=== PATIENT | male | born 1970 ===

== ENCOUNTER 2018-04-08 16:21 | Observation (INO) | payer SELFPAY ==
[2018-04-08 16:21] VITALS: BMI 38.7
--- NOTE | 2018-04-08 17:34 | ED PDOC ---
HPI: General Adult Time Seen by Provider: 04/08/18 16:59 Chief Complaint (Nursing): Dizziness/Lightheaded Chief Complaint (Provider): Bradycardia, Dizziness History Per: Patient History/Exam Limitations: no limitations Onset/Duration Of Symptoms: Other (x3 weeks) Current Symptoms Are (Timing): Still Present Additional Complaint(s): 47 y/o male, with a past medical history of HTN and anxiety, sent from clinic for evaluation of bradycardia. Patient presented to clinic earlier today complaining of dizziness ongoing for 2 weeks. He describes dizziness as a room spinning sensation, but also states he feels lightheaded. He denies any history of similar symptoms. He also denies any vomiting, melena, fever, or change in vision or speech. He notes mild headache and states he has not taken his blood pressure medication, Amlodipine, in several days due to dizziness. PMD: [facility] Past Medical History Reviewed: Historical Data, Nursing Documentation, Vital Signs Vital Signs: Last Vital Signs Temp 98.3 F 04/08/18 16:51 Pulse 56 L 04/08/18 16:51 Resp 16 04/08/18 16:51 BP 158/76 H 04/08/18 16:51 Pulse Ox 100 04/08/18 17:43 - Medical History PMH: Anxiety, HTN - Surgical History Surgical History: Appendectomy - Family History Family History: States: Unknown Family Hx - Home Medications Home Medications: Ambulatory Orders Medication Instructions Recorded Naproxen [Naprosyn] 500 mg PO BID #30 tablet 04/24/17 - Allergies Allergies/Adverse Reactions: Allergies Allergy/AdvReac Type Severity Reaction Status Date / Time No Known Allergies Allergy Verified 04/18/16 16:18 Review of Systems ROS Statement: Except As Marked, All Systems Reviewed And Found Negative Constitutional: Positive for: Weakness. Negative for: Fever Eyes: Negative for: Vision Change Gastrointestinal: Negative for: Vomiting, Melena Neurological: Positive for: Dizziness. Negative for: Change in Speech Physical Exam - Reviewed Nursing Documentation Reviewed: Yes Vital Signs Reviewed: Yes - Physical Exam Appears: Positive for: Non-toxic, No Acute Distress Head Exam: Positive for: ATRAUMATIC, NORMAL INSPECTION, NORMOCEPHALIC Skin: Positive for: Normal Color, Warm, Dry. Negative for: Pallor, Rash Eye Exam: Positive for: EOMI, Normal appearance, PERRL Neck: Positive for: Normal, Painless ROM, Supple Cardiovascular/Chest: Positive for: Bradycardia Respiratory: Positive for: Normal Breath Sounds. Negative for: Respiratory Distress Gastrointestinal/Abdominal: Positive for: Normal Exam, Soft. Negative for: Tenderness Back: Positive for: Normal Inspection. Negative for: L CVA Tenderness, R CVA Tenderness, Vertebral Tenderness Extremity: Positive for: Normal ROM. Negative for: Deformity, Swelling Neurologic/Psych: Positive for: Alert, Oriented (x3), Cerebellar Tests ( coordination intact). 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 Provider Scribe Attestation: All medical record entries made by the Scribe were at my direction and personally dictated by me. I have reviewed the chart and agree that the record accurately reflects my personal performance of the history, physical exam, medical decision making, and the department course for this patient. I have also personally directed, reviewed, and agree with the discharge instructions and disposition. Disposition - Disposition Forms: [employer] (Panamanian)
[2018-04-08 17:38] LABS: BASO # 0.1 K/uL (0.0-0.2); BASO % 1.1 % (0.0-2.0); EOS # 0.2 K/uL (0.0-0.7); EOS % 2.6 % (0.0-4.0); HEMOGLOBIN 15.5 g/dL (12.0-18.0); LYMPH # 3.4 K/uL (1.0-4.3); MEAN CELL VOLUME 87.4 fl (80.0-94.0); MEAN CORPUSCULAR HEMOGLOBIN 29.3 pg (27.0-31.0); MEAN CORPUSCULAR HGB CONC 33.5 g/dL (33.0-37.0); MEAN PLATELET VOLUME 8.9 fl (7.2-11.7); MONO # 0.5 K/uL (0.0-0.8); MONO % 6.6 % (0.0-10.0); NEUT # 3.9 K/uL (1.8-7.0); NEUT % 47.7 % (50.0-75.0); NRBC % 0.1 % (0.0-0.0); RBC 5.27 Mil/uL (4.40-5.90); RED CELL DISTRIBUTION WIDTH 13.4 % (11.5-14.5); WHITE BLOOD COUNT 8.2 K/uL (4.8-10.8)
[2018-04-08 17:40] LABS: PROTHROMBIN TIME 11.2 Seconds (9.8-13.1)
[2018-04-08 17:43] LABS: PARTIAL THROMBOPLASTIN TIME 33.4 Seconds (25.6-37.1)
[2018-04-08 17:59] LABS: ALB/GLOB RATIO 1.5 (1.0-2.1); ALBUMIN 4.8 g/dL (3.5-5.0); ALT/SGPT 47 U/L (21-72); AST/SGOT 36 U/L (17-59); B-TYPE NATRIURETIC PEPTIDE 50.7 pg/ml (0-450); BLOOD UREA NITROGEN 11 mg/dl (9-20); CALCIUM 9.4 mg/dL (8.4-10.2); GFR AFRICAN-AMERICAN > 60; GFR NON-AFRICAN AMERICAN > 60
--- NOTE | 2018-04-08 18:05 | CT ---
Date of service: 04/08/2018 PROCEDURE: CT HEAD WITHOUT CONTRAST. HISTORY: dizzy w bradycardia, HTN COMPARISON: Comparison is made with 04/18/2016 TECHNIQUE: Axial computed tomography images were obtained through the head/brain without intravenous contrast. Radiation dose: Total exam DLP = 855.36 mGy-cm. This CT exam was performed using one or more of the following dose reduction techniques: Automated exposure control, adjustment of the mA and/or kV according to patient size, and/or use of iterative reconstruction technique. FINDINGS: HEMORRHAGE: No intracranial hemorrhage. BRAIN: No mass effect or edema. No atrophy or chronic microvascular ischemic changes. VENTRICLES: Unremarkable. No hydrocephalus. CALVARIUM: Unremarkable. PARANASAL SINUSES: Unremarkable as visualized. No significant inflammatory changes. MASTOID AIR CELLS: Unremarkable as visualized. No inflammatory changes. OTHER FINDINGS: None. IMPRESSION: No evidence of acute intracranial hemorrhage mass effect or midline shift.
[2018-04-08 18:34] LABS: PH,URINE 6 (5.0-8.0); URINE BILIRUBIN NEGATIVE (NEGATIVE); URINE BLOOD TRACE (NEGATIVE); URINE CLARITY Clear (Clear); URINE COLOR LIGHT YELLOW (YELLOW); URINE GLUCOSE (UA) NEGATIVE (Normal); URINE PROTEIN NEGATIVE (NEGATIVE)
[2018-04-08 18:35] LABS: URINE LEUKOCYTE ESTERASE NEGATIVE Leu/uL (Negative); URINE UROBILINOGEN 0.2 mg/dL (0.2-1.0)
--- NOTE | 2018-04-08 18:57 | CP.PCM.HP ---
History of Present Illness - History of Present Illness History of Present Illness: 47 Y/O w/ PMH of HTN, anxiety was sent from the clinic for symptomatic bradycardia. He was noted to have a HR of 45 in the clinic. - Patient states he has been having intermittent dizziness and vertigo. Describes episodes of the room spinning and sometimes light headedness. - Dizziness has been going on for 2 weeks. States it is worse in the mornings when he is laying down. Patient states when he was driving last week, he felt lightheaded, weak and felt as if his vision was going away. He has not been taking his blood pressure medication for the last several days, because he assumed the dizziness was a result of the medication possibly. In the past he had similar symptoms hand was given meclizine which provided some relief. - Has intermittent chest pain over the last year, which is not worse on exertion. He had a exercise stress test in October 2017 which was WNL. Currently denies any chest pain. - Patient does admit to going camping 1 week ago, but denies any tick bites. 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, Social drinker, denies smoking or illicit drug use ER course: -CT Head w/o contrast: No acute findings -EKG: Sinus bradycardia -CMP: WNL -CBC: WNL -Troponin I x1 negative -PTT/PT: WNL -Urinalysis - TSH : WNL FULL CODE Present on Admission - Present on Admission Any Indicators Present on Admission: No Past Patient History - Past Social History Smoking Status: Never Smoked - CARDIAC Hx Hypertension: Yes - NEUROLOGICAL Hx Vertigo: Yes - PSYCHIATRIC Hx Anxiety: Yes - SURGICAL HISTORY Hx Appendectomy: Yes - ANESTHESIA Hx Anesthesia: Yes Hx Anesthesia Reactions: No Meds Allergies/Adverse Reactions: Allergies Allergy/AdvReac Type Severity Reaction Status Date / Time No Known Allergies Allergy Verified 04/18/16 16:18 Physical Exam - Constitutional Appears: No Acute Distress - Head Exam Head Exam: NORMAL INSPECTION - Eye Exam Eye Exam: Normal appearance Pupil Exam: NORMAL ACCOMODATION, PERRL - ENT Exam ENT Exam: Mucous Membranes Moist, Normal Exam - Respiratory Exam Respiratory Exam: Clear to Auscultation Bilateral, NORMAL BREATHING PATTERN. absent: Rhonchi, Wheezes - Cardiovascular Exam Cardiovascular Exam: Bradycardia, +S1, +S2 - GI/Abdominal Exam GI & Abdominal Exam: Normal Bowel Sounds, Soft. absent: Tenderness - Extremities Exam Extremities exam: Positive for: normal inspection. Negative for: calf tenderness - Back Exam Back exam: NORMAL INSPECTION. absent: CVA tenderness (L), CVA tenderness (R) - Neurological Exam Neurological exam: Alert, CN II-XII Intact, Normal Gait, Oriented x3, Reflexes Normal Additional comments: [place] hallpike +ve to the left - Skin Skin Exam: Normal Color, Warm Results - Vital Signs Recent Vital Signs: Last Vital Signs Temp 98.3 F 04/08/18 16:51 Pulse 56 L 04/08/18 16:51 Resp 16 04/08/18 16:51 BP 158/76 H 04/08/18 16:51 Pulse Ox 100 04/08/18 17:47 - Labs Result Diagrams: 04/08/18 17:29 04/08/18 17:29 Labs: Laboratory Results - last 24 hr 04/08/18 04/08/18 04/08/18 16:46 17:29 17:29 WBC 8.2 RBC 5.27 Hgb 15.5 Hct 46.1 MCV 87.4 MCH 29.3 MCHC 33.5 RDW 13.4 Plt Count 218 MPV 8.9 Neut % (Auto) 47.7 L Lymph % (Auto) 42.0 H [place] % (Auto) 6.6 Eos % (Auto) 2.6 Baso % (Auto) 1.1 Neut # (Auto) 3.9 Lymph # (Auto) 3.4 [place] # (Auto) 0.5 Eos # (Auto) 0.2 Baso # (Auto) 0.1 PT INR APTT Sodium 142 Potassium 4.6 Chloride 106 Carbon Dioxide 24 Anion Gap 17 BUN 11 Creatinine 0.9 Est GFR ( Amer) > 60 Est GFR (Non-Af Amer) > 60 POC Glucose (mg/dL) 81 Random Glucose 97 Calcium 9.4 Total Bilirubin 0.7 AST 36 ALT 47 Alkaline Phosphatase 50 Troponin I < 0.0120 NT-Pro-B Natriuret Pep 50.7 Total Protein 8.1 Albumin 4.8 Globulin 3.3 Albumin/Globulin Ratio 1.5 Urine Color Urine Clarity Urine pH Ur Specific [place] Urine Protein Urine Glucose (UA) Urine Ketones Urine Blood Urine Nitrate Urine Bilirubin Urine Urobilinogen Ur Leukocyte Esterase Urine RBC (Auto) Urine Microscopic WBC 04/08/18 04/08/18 17:29 17:29 WBC RBC Hgb Hct MCV MCH MCHC RDW Plt Count MPV Neut % (Auto) Lymph % (Auto) [place] % (Auto) Eos % (Auto) Baso % (Auto) Neut # (Auto) Lymph # (Auto) [place] # (Auto) Eos # (Auto) Baso # (Auto) PT 11.2 INR 1.0 APTT 33.4 Sodium Potassium Chloride Carbon Dioxide Anion Gap BUN Creatinine Est GFR ( Amer) Est GFR (Non-Af Amer) POC Glucose (mg/dL) Random Glucose Calcium Total Bilirubin AST ALT Alkaline Phosphatase Troponin I NT-Pro-B Natriuret Pep Total Protein Albumin Globulin Albumin/Globulin Ratio Urine Color Light yellow Urine Clarity Clear Urine pH 6 Ur Specific [place] 1.010 Urine Protein Negative Urine Glucose (UA) Negative Urine Ketones Negative Urine Blood Trace H Urine Nitrate Negative Urine Bilirubin Negative Urine Urobilinogen 0.2 Ur Leukocyte Esterase Negative Urine RBC (Auto) 1 Urine Microscopic WBC 2 Assessment & Plan - Assessment and Plan (Free Text) Assessment: 47 YO W/ PMH of HTN, HLD presents to the ER with symptomatic light headedness and vertigo. 1) Intermittent Bradycardia with dizziness and light headedness - BPPV vs Bradycardia leading to symptoms - Symptomatic - Cardio consulted - Echo ordered for AM - F/U with labs - Monitor on telemetry - Meclizine 12.5 mg x 1 ordered, reassess 2) HTN - C/W home meds: Norvac 10mg 3) DVT prophylaxis - SCD
[2018-04-08 22:12] LABS: BARBITURATES, UR NEGATIVE (NEGATIVE); BENZODIAZEPINES, UR NEGATIVE (NEGATIVE); OPIATES, UR NEGATIVE (NEGATIVE); PHENCYCLIDINE, UR NEGATIVE (NEGATIVE)
[2018-04-09] MEDS ORDERED: Pneumococcal 23-Valent Vaccine IM ONE (00:54)
--- NOTE | 2018-04-09 08:14 | CP.PCM.PN ---
Subjective - Date & Time of Evaluation Date of Evaluation: 04/09/18 Time of Evaluation: 07:00 - Subjective Subjective: Patient seen and examined this morning at bedside. Reports improvement after the treatment in the ER. Reports intermittent dizziness and ringing in ears with mild chest discomfort for last 20 days. Denies any current dizziness, palpitations, chest pain, blurred vision or ear ringing. tolerating PO, ambulating Objective - Vital Signs/Intake and Output Vital Signs (last 24 hours): Temp Pulse Resp BP Pulse Ox 97.8 F 50 L 18 121/74 98 04/09/18 05:21 04/09/18 05:21 04/09/18 05:21 04/09/18 05:21 04/09/18 05:21 - Medications Medications: Current Medications Amlodipine Besylate (Norvasc) 10 mg PO DAILY GILLIAN Aspirin (Ecotrin) 81 mg PO DAILY GILLIAN - Labs Labs: 04/08/18 17:29 04/08/18 17:29 PT 11.2 Seconds (9.8-13.1) 04/08/18 17:29 INR 1.0 04/08/18 17:29 APTT 33.4 Seconds (25.6-37.1) 04/08/18 17:29 - Constitutional Appears: No Acute Distress - Head Exam Head Exam: NORMAL INSPECTION - Eye Exam Eye Exam: EOMI, Normal appearance, PERRL Pupil Exam: NORMAL ACCOMODATION - ENT Exam ENT Exam: Mucous Membranes Moist - Respiratory Exam Respiratory Exam: Clear to Ausculation Bilateral, NORMAL BREATHING PATTERN. absent: Accessory Muscle Use, Chest Wall Tenderness, Rhonchi, Wheezes - Cardiovascular Exam Cardiovascular Exam: REGULAR RHYTHM, +S1, +S2 - GI/Abdominal Exam GI & Abdominal Exam: Soft, Normal Bowel Sounds - Rectal Exam Rectal Exam: NORMAL INSPECTION - Extremities Exam Extremities Exam: Full ROM, Normal Capillary Refill, Normal Inspection - Back Exam Back Exam: NORMAL INSPECTION. absent: CVA tenderness (L), CVA tenderness (R) - Neurological Exam Neurological Exam: Alert, Awake, CN II-XII Intact, Normal Gait, Oriented x3 Neuro motor strength exam: Left Upper Extremity: 5, Right Upper Extremity: 5, Left Lower Extremity: 5, Right Lower Extremity: 5 - Psychiatric Exam Psychiatric exam: Normal Affect, Normal Mood - Skin Skin Exam: Dry, Intact, Normal Color, Warm Assessment and Plan - Assessment and Plan (Free Text) Assessment: A/P: 47 y/o male W/ PMH of HTN, HLD and anxiety admitted to [facility] for evaluation and treatment of light headedness, vertigo and symptomatic bradycardia. Intermittent symptomatic Bradycardia - dizziness and light headedness - BPPV vs Bradycardia vs orthostatic hypotension leading to symptoms - Cardio consulted, Dr. Knapp, will follow recommendations - F/u Echo - F/u MRI brain, per cardio Orthostatic Hypotension - lying down to supine diastolic BP drooped 10mm - Symptomatic management and lifestyle modifications discussed with patient HTN - C/W home meds: Norvac 10mg DVT prophylaxis - SCD - Ambulating
--- NOTE | 2018-04-09 13:48 | CARD ---
APPROVED REPORT Date of service: 04/08/2018 EKG Measurement Heart [id number] CT [id number] <Conclusion> Sinus bradycardia with premature atrial complexes Otherwise normal ECG
--- NOTE | 2018-04-09 15:33 | CARD ---
APPROVED REPORT Date of service: 04/09/2018 EXAM: Two-dimensional and M-mode echocardiogram with Doppler and color Doppler. Other Information Quality : GoodRhythm : NSR INDICATION Abnormal EKG/Arrhythmia Dizziness and Vertigo 2D DIMENSIONS IVSd0.97 (0.7-1.1cm)LVDd5.03 (3.9-5.9cm) LVOT Diameter2.07 (1.8-2.4cm)PWd0.80 (0.7-1.1cm) IVSs1.55 (0.8-1.2cm)LVDs2.36 (2.5-4.0cm) FS (%) 53.2 %PWs1.35 (0.8-1.2cm) M-Mode DIMENSIONS Left Atrium (MM)4.65 (2.5-4.0cm)IVSd0.94 (0.7-1.1cm) Aortic Root3.38 (2.2-3.7cm)LVDd5.24 (4.0-5.6cm) Aortic Cusp Exc.2.21 (1.5-2.0cm)PWd0.94 (0.7-1.1cm) IVSs1.65 cmFS (%) 40 % LVDs3.15 (2.0-3.8cm)PWs1.71 cm Aortic Valve AoV Peak Evkimfra217.0cm/sAoV VTI28.4cmAO Peak GR.6mmHg LVOT Peak Fcnrdjhf008.7cm/sLVOT VTI24.34cmAO Mean GR.3mmHg WERO (VMAX)1.00pq9GHE (VTI)1.34cm2 Mitral Valve MV E Scxttzal90.5cm/sMV DECEL [id number] A Eboccfjb63.2cm/s MV PBN32buB/A ratio1.3MVA (PHT)3.94cm2 TDI Lateral E' Peak V12.30cm/sMedial E' Peak V11.33cm/sE/Lateral E'6.1 E/Medial E'6.7 Pulmonary Valve PV Peak Nxgremep348.6cm/s Tricuspid Valve TR Peak Bdralyoz020td/sRAP SNBJYTQH36rxLbVM Peak Gr.27mmHg FBED92suZg LEFT VENTRICLE The left ventricle is normal size. There is normal left ventricular wall thickness. The left ventricular ejection fraction is within the normal range. The Ejection Fraction is 55-60%. No regional wall motion abnormalities noted.. Transmitral Doppler flow pattern is normal for age. No left ventricle thrombus noted on this study. There is no ventricular septal defect visualized. There is no mass noted in the left ventricle. RIGHT VENTRICLE The right ventricle is normal size. There is normal right ventricular wall thickness. The right ventricular systolic function is normal. ATRIA The left atrium size moderately dilated The right atrium size is normal. The interatrial septum is intact with no evidence for an atrial septal defect. AORTIC VALVE The aortic valve is normal in structure. No aortic regurgitation is present. There is no aortic valvular stenosis. MITRAL VALVE The mitral valve is normal in structure. There is no mitral valve stenosis. There is mild mitral valve regurgitation noted. TRICUSPID VALVE The tricuspid valve is normal in structure. There is mild tricuspid valve regurgitation noted. Mild pulmonary hypertension PULMONIC VALVE The pulmonary valve is normal in structure. There is no pulmonic valvular regurgitation. GREAT VESSELS The aortic root is normal in size. The ascending aorta is normal in size. The pulmonary artery is normal. The IVC is normal in size and collapses >50% with inspiration. PERICARDIAL EFFUSION There is no pericardial effusion. <Conclusion> Mild mitral insufficiency Mild TR with mild pulmonary hypertension Dilated left atrium Normal LV function The Ejection Fraction is 55-60%.
--- NOTE | 2018-04-09 17:53 | MRI ---
Date of service: 04/09/2018 PROCEDURE: MRI BRAIN WITHOUT CONTRAST HISTORY: dizziness COMPARISON: Comparison is made with the previous study dated 08/07/2016 TECHNIQUE: Multiplanar, multisequence MR images of the brain were obtained without intravenous contrast enhancement. FINDINGS: HEMORRHAGE: None DWI: No evidence of an acute or early subacute infarction. BRAIN PARENCHYMA: No mass effect or edema. Again noted are few foci of hyperintense T2 and FLAIR signal in the white matter likely represent chronic microvascular ischemic disease. No evidence of significant interval change noted since the previous exam. VENTRICLES: Unremarkable. No hydrocephalus. CRANIUM: Unremarkable. ORBITS: Grossly unremarkable. PARANASAL SINUSES/MASTOIDS: Clear VASCULAR SYSTEM: Skull base flow voids intact. OTHER FINDINGS: None. IMPRESSION: No evidence of acute infarction or acute pathology in the brain. No evidence of mass lesion mass effect or midline shift. Stable foci of white matter hyperintense T2 and FLAIR signal may represent chronic microvascular ischemic disease. No significant interval change noted since the previous exam.
[2018-04-10 00:13] VITALS: RESP 18
--- NOTE | 2018-04-10 00:53 | CON ---
Copied To: Joseph Knapp MD Attending MD: Joseph Knapp MD DATE: 04/09/2018 REASON FOR CONSULTATION: Sinus bradycardia and uncontrolled hypertension. HISTORY OF PRESENT ILLNESS: The patient is a 47-year-old male who has a history of hypertension, on amlodipine therapy, which he ran out two weeks ago. The patient presented because of dizziness. The patient did have vertigo in the past for which he used Antivert. The patient was told that his heart rate was slow on an EKG done as an outpatient and it was in the 40s. The patient denies any syncope. The patient's initial blood pressure when he came into the emergency room was 164/112 with a heart rate of 50. The patient denies any speech difficulty or motor weakness. The patient is unaware of any history of stroke in the past. SOCIAL HISTORY: The patient is a nonsmoker. 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 He is and has children. MEDICATIONS: Aspirin 81 mg once a day, amlodipine 10 mg once a day. REVIEW OF SYSTEMS: No nausea or vomiting. No fever or chills. No retrosternal chest pain and no headache. PHYSICAL EXAMINATION: GENERAL: The patient is a middle-aged male who does not appear to be in acute distress. VITAL SIGNS: Blood pressure 121/74, heart rate 50, temperature 97.8, respirations 18. HEENT: Normocephalic. CHEST: Clear. HEART: S1, S2 regular. ABDOMEN: Soft. EXTREMITIES: No edema. LABORATORY DATA: SMA-7 is entirely within normal limits. One set of troponin is negative. TSH level is within normal limits. PT, PTT, and INR are within normal limits. Hemoglobin and hematocrit, white count, and platelet count are within normal limits. Urine drug screen is negative. EKG revealed sinus bradycardia with APCs. Heart rate 58. Otherwise normal EKG. ASSESSMENT: 1. Uncontrolled hypertension on admission, most likely is the reason for the patient's dizziness rather than the sinus bradycardia in the 40s and the 50s. 2. History of vertigo in the past. RECOMMENDATIONS: Continue current aspirin and amlodipine therapy. I will review the echocardiographic study performed today and obtain brain MRI. Joseph Knapp MD [facility] # [id number]
--- NOTE | 2018-04-10 12:37 | CP.PCM.DIS ---
Provider - Provider Date of Admission: 04/08/18 18:09 Attending physician: Megan Hollingsworth MD Primary care physician: [facility] Consults: Cardiology, Dr. Knapp Time Spent in preparation of Discharge (in minutes): 40 Diagnosis - Discharge Diagnosis (1) Bradycardia Status: Chronic (2) Orthostatic hypotension Status: Chronic Hospital Course - Lab Results Lab Results: Most Recent Lab Values WBC 8.2 K/uL (4.8-10.8) 04/08/18 17: RBC 5.27 Mil/uL (4.40-5.90) 04/08/18 17: Hgb 15.5 g/dL (12.0-18.0) 04/08/18 17: Hct 46.1 % (35.0-51.0) 04/08/18: MCV 87.4 fl (80.0-94.0) 04/08/18: MCH 29.3 pg (27.0-31.0) 04/08/18: MCHC 33.5 g/dL (33.0-37.0) 04/08/18 17: RDW 13.4 % (11.5-14.5) 04/08/18: Plt Count 218 K/uL (130-400) 04/08/18 17: MPV 8.9 fl (7.2-11.7) 04/08/18 17: Neut % (Auto) 47.7 % (50.0-75.0) L 04/08/18: Lymph % (Auto) 42.0 % (20.0-40.0) H 04/08/18: Coos % (Auto) 6.6 % (0.0-10.0) 04/08/18: Eos % (Auto) 2.6 % (0.0-4.0) 04/08/18: Baso % (Auto) 1.1 % (0.0-2.0) 04/08/18 17: Neut # (Auto) 3.9 K/uL (1.8-7.0) 04/08/18 17: Lymph # (Auto) 3.4 K/uL (1.0-4.3) 04/08/18 17:29 Coos # (Auto) 0.5 K/uL (0.0-0.8) 04/08/18 17:29 Eos # (Auto) 0.2 K/uL (0.0-0.7) 04/08/18 17:29 Baso # (Auto) 0.1 K/uL (0.0-0.2) 04/08/18 17:29 PT 11.2 Seconds (9.8-13.1) 04/08/18 17:29 INR 1.0 04/08/18 17:29 APTT 33.4 Seconds (25.6-37.1) 04/08/18 17:29 D-Dimer, Quantitative 72 ng/mlDDU (0-230) 04/09/18 15:56 Sodium 142 mmol/l (132-148) 04/08/18 17:29 Potassium 4.6 MMOL/L (3.6-5.0) 04/08/18 17:29 Chloride 106 mmol/L (98-107) 04/08/18 17:29 Carbon Dioxide 24 mmol/L (22-30) 04/08/18 17:29 Anion Gap 17 (10-20) 04/08/18 17:29 BUN 11 mg/dl (9-20) 04/08/18 17:29 Creatinine 0.9 mg/dl (0.8-1.5) 04/08/18 17:29 Est GFR ( Amer) > 60 04/08/18 17:29 Est GFR (Non-Af Amer) > 60 04/08/18 17:29 POC Glucose (mg/dL) 81 mg/dL (65-110) 04/08/18 16:46 Random Glucose 97 mg/dL (75-110) 04/08/18 17:29 Calcium 9.4 mg/dL (8.4-10.2) 04/08/18 17:29 Phosphorus 3.4 mg/dl (2.5-4.5) 04/08/18 19:42 Magnesium 2.3 MG/DL (1.6-2.3) 04/08/18 19:42 Total Bilirubin 0.7 mg/dl (0.2-1.3) 04/08/18 17:29 AST 36 U/L (17-59) 04/08/18 17:29 ALT 47 U/L (21-72) 04/08/18 17:29 Alkaline Phosphatase 50 U/L (38-126) 04/08/18 17:29 Troponin I < 0.0120 ng/mL (0.00-0.120) 04/08/18 17:29 NT-Pro-B Natriuret Pep 50.7 pg/ml (0-450) 04/08/18 17: Total Protein 8.1 G/DL (6.3-8.2) 04/08/18 17: Albumin 4.8 g/dL (3.5-5.0) 04/08/18 17:29 Globulin 3.3 gm/dL (2.2-3.9) 04/08/18 17: Albumin/Globulin Ratio 1.5 (1.0-2.1) 04/08/18 17: TSH 3rd Generation 2.05 mIU/ML (0.46-4.68) 04/08/18 19:42 Urine Color Light yellow (YELLOW) 04/08/18 17: Urine Clarity Clear (Clear) 04/08/18 17:29 Urine pH 6 (5.0-8.0) 04/08/18 17:29 Ur Specific Mcloud 1.010 (1.003-1.030) 04/08/18 17:29 Urine Protein Negative mg/dL (NEGATIVE) 04/08/18 17:29 Urine Glucose (UA) Negative mg/dL (Normal) 04/08/18 17:29 Urine Ketones Negative mg/dL (NEGATIVE) 04/08/18 17:29 Urine Blood Trace (NEGATIVE) H 04/08/18 17: Urine Nitrate Negative (NEGATIVE) 04/08/18 17:29 Urine Bilirubin Negative (NEGATIVE) 04/08/18 17:29 Urine Urobilinogen 0.2 mg/dL (0.2-1.0) 04/08/18 17:29 Ur Leukocyte Esterase Negative Андрей/uL (Negative) 04/08/18 17:29 Urine RBC (Auto) 1 /hpf (0-3) 04/08/18 17:29 Urine Microscopic WBC 2 /hpf (0-5) 04/08/18 17:29 Urine Opiates Screen Negative (NEGATIVE) 04/08/18 21:31 Urine Methadone Screen Negative (NEGATIVE) 04/08/18 21:31 Ur Barbiturates Screen Negative (NEGATIVE) 04/08/18 21:31 Ur Phencyclidine Scrn Negative (NEGATIVE) 04/08/18 21:31 Ur Amphetamines Screen Negative (NEGATIVE) 04/08/18 21:31 U Benzodiazepines Scrn Negative (NEGATIVE) 04/08/18 21:31 U Oth Cocaine Metabols Negative (NEGATIVE) 04/08/18 21:31 U Cannabinoids Screen Negative (NEGATIVE) 04/08/18 21:31 Lyme Disease Screen <0.90 index 04/08/18 19:42 - Hospital Course Hospital Course: 47 y/o male W/ PMH of HTN, HLD and anxiety admitted to [facility] for evaluation and treatment of light headedness, vertigo and symptomatic bradycardia. After admission patient remained stable, Cardiology, Dr. Knapp consulted. Echo: EF 55-60%, Mild TR with mild Pulmonary HTN, dilated left atrium. MRI brain: no acute changes, Chronic microvascular ischemic disease. Patient is stable and discharged home with instructions to c/w home medications, and follow up with PMD. Home Medications: Norvasc 10mg PO daily. STOP Aspirin, ASCVD risk 3.3% New Medications: None, C/w Norvasc 10mg PO daily Discharge Exam - Head Exam Head Exam: NORMAL INSPECTION - Eye Exam Eye Exam: Normal appearance, PERRL Pupil Exam: NORMAL ACCOMODATION - ENT Exam ENT Exam: Mucous Membranes Moist - Respiratory Exam Respiratory Exam: Clear to PA & Lateral, NORMAL BREATHING PATTERN, UNREMARKABLE. absent: Accessory Muscle Use, Chest Wall Tenderness, Decreased Breath Sounds, Rales, Wheezes, Respiratory Distress, Stridor - Cardiovascular Exam Cardiovascular Exam: REGULAR RHYTHM, +S1, +S2 - GI/Abdominal Exam GI & Abdominal Exam: Normal Bowel Sounds, Soft. absent: Distended, Guarding, Hernia, Pulsatile Mass, Rebound, Rigid, Tenderness - Extremities Exam Extremities exam: normal capillary refill, normal inspection, pedal pulses present - Back Exam Back exam: NORMAL INSPECTION. absent: CVA tenderness (L), CVA tenderness (R) - Neurological Exam Neurological exam: Alert, CN II-XII Intact, Normal Gait, Oriented x3, Reflexes Normal - Psychiatric Exam Psychiatric exam: Normal Affect, Normal Mood - Skin Skin Exam: Dry, Intact, Normal Color, Warm Discharge Plan - Discharge Medications Prescriptions: amLODIPine [Norvasc] 10 mg PO DAILY #30 tab - Follow Up Plan Condition: GOOD Disposition: HOME/ ROUTINE Patient education suggested?: Yes Instructions: Vertigo (a Type of Dizziness), Bradycardia, Orthostatic Hypotension, High Blood Pressure (DC) Additional Instructions: Follow up with Dr. Garcia on 04/26/18 at 10:20am C/w home medications Referrals: [facility] [Outside] Joseph Knapp MD [Staff Provider] - Rowan Garcia MD [Resident] -
[2018-04-10 12:53] VITALS: BP 137/76; PULSE 62; TEMP 97.9; O2SAT 96
--- NOTE | 2018-04-10 16:51 | PN ---
Copied To: Joseph Knapp MD Attending MD: Joseph Knapp MD DATE: 04/10/2018 SUBJECTIVE: The patient is still experiencing dizziness. The slowest heart rate he had earlier this morning was 39 probably while sleeping. His heart rate is down to 60s and 70s. He denies any chest pain or headache. PHYSICAL EXAMINATION: VITAL SIGNS: Blood pressure 137/74, heart rate 63, temperature 98, respirations 18. HEENT: Normocephalic. CHEST: Clear. HEART: S1 and S2 regular. EXTREMITIES: No edema. LABORATORY DATA: D-dimer is within normal limits. Lyme disease screening is negative. Brain MRI, no evidence of acute infarct or acute pathology. No evidence of right mass lesion. Stable foci of white matter hypodensity to end flair signal, may represent chronic microvascular ischemic disease. Official echocardiographic study report, mild mitral insufficiency and mild tricuspid insufficiency with mild pulmonary hypertension, normal ejection fraction and dilated left atrium. ASSESSMENT: 1. Dizziness. 2. Sinus tachycardia, unlikely contributing to the patient's dizziness as at this time of my evaluation, the patient's heart rate was in the 70s and he is still experiencing some degree of lightheadedness. 3. Hypertension. RECOMMENDATIONS: Continue current aspirin and Norvasc. Obtain lupus markers as well as rheumatoid factor. Joseph Knapp MD
== END 2018-04-10 15:15 | disposition home or self-care (01) ==
LOC: H.ER 16:21 → H.ERHOLD 18:09 → H.TEL 04-09 00:10
PROVIDERS: ADMIT Family Medicine Geriatric Medicine; ATTEND Family Medicine Geriatric Medicine
DX: R00.1 Bradycardia, unspecified (principal); I95.1 Orthostatic hypotension; I10 Essential (primary) hypertension; E78.5 Hyperlipidemia, unspecified; K21.9 Gastro-esophageal reflux disease without esophagitis; I27.20 Pulmonary hypertension, unspecified; F41.9 Anxiety disorder, unspecified; Z23 Encounter for immunization
CPT/HCPCS: 36415; 70450; 70551; 80053; 80324; 80345; 80346; 80349; 80353; 80358; 80361; 81003; 82948; 83735; 83880; 83992; 84100; 84443; 84484; 85025; 85378; 85610; 85730; 86618; 90471; 90732; 93005; 93306; 99285; G0378